=== PATIENT | female | born 1950 | race Caucasian/White ===

== ENCOUNTER 2024-11-05 06:28 | Day surgery (SDC) | payer MEDICARE ==
[~2024-11-05] VITALS: Ht 170.2 cm; Wt 76.2 kg
[2024-11-05] MEDS ORDERED: Bentyl20 MG (07:11)
[2024-11-05] MEDS ORDERED: BUDESONIDE-FO10.2 G2 (07:11)
[2024-11-05] MEDS ORDERED: GLIMEPIRIDE4 MG (07:11)
[2024-11-05] MEDS ORDERED: EPLERENONE25 M2 (07:11)
[2024-11-05] MEDS ORDERED: FOSAMAX70 MG (07:11)
[2024-11-05] MEDS ORDERED: Diflucan150 MG (07:12)
[2024-11-05] MEDS ORDERED: AMARYL (07:12)
[2024-11-05] MEDS ORDERED: HUMALOG KW100 UNIT/1 (07:13)
[2024-11-05] MEDS ORDERED: HYDRA25 (07:14)
[2024-11-05] MEDS ORDERED: BASAGLAR K100 UNIT/6 (07:14)
[2024-11-05] MEDS ORDERED: NYSTRIT (07:14)
[2024-11-05] MEDS ORDERED: TIOT18 (07:15)
[2024-11-05] MEDS ORDERED: SYMBICORT 160-4.6 GM (07:16)
[2024-11-05] MEDS ORDERED: ASPI81CH PO (07:17)
[2024-11-05] MEDS ORDERED: VITAMIN D3400 UNI1 (07:17)
[2024-11-05] MEDS ORDERED: ZYRTEC10 M2 (07:18)
[2024-11-05] MEDS ORDERED: CRANBERRY125 MG (07:18)
[2024-11-05] MEDS ORDERED: MAGNESIUM OXID500 MG (07:18)
[2024-11-05] MEDS ORDERED: TURMERIC500 M2 (07:18)
[2024-11-05] MEDS ORDERED: Flonase 0.05% N16 GM (07:18)
[2024-11-05] MEDS ORDERED: CULTURELLE ADV1 EACH (07:19)
[2024-11-05] MEDS ORDERED: RED YEAST RICE55 MG (07:19)
[2024-11-05] MEDS ORDERED: MELATONIN1 M1 (07:19)
[2024-11-05] MEDS ORDERED: NAC (07:20)
[2024-11-05] MEDS ORDERED: ZINC50 M3 (07:20)
[2024-11-05] MEDS ORDERED: propofoL 50 ML IV ONE (07:36)
[2024-11-05] MEDS ORDERED: Lactated Ringer's 1,000 ML IV ONE ×2 (07:37→07:57)
[2024-11-05 09:06] VITALS: BP 132/68
== END 2024-11-05 09:10 | disposition home or self-care (01) ==
LOC: ORSCSDS 06:28
PROVIDERS: Specialist
PROC: 0DB78ZX Excision of Stomach, Pylorus, Via Natural or Artificial Opening Endoscopic, Diagnostic (ICD-10-PCS; principal; 2024-11-05 08:00)
PROC: 0DBL8ZX Excision of Transverse Colon, Via Natural or Artificial Opening Endoscopic, Diagnostic (ICD-10-PCS; principal; 2024-11-05 08:00)
DX: Z12.11 Encounter for screening for malignant neoplasm of colon (principal); Z86.0101 Personal history of adenomatous and serrated colon polyps; Z13.810 Encounter for screening for upper gastrointestinal disorder; K74.60 Unspecified cirrhosis of liver; K63.5 Polyp of colon; K31.89 Other diseases of stomach and duodenum; K74.69 Other cirrhosis of liver; K64.8 Other hemorrhoids; K57.30 Diverticulosis of large intestine without perforation or abscess without bleeding; I10 Essential (primary) hypertension; E78.5 Hyperlipidemia, unspecified; E11.9 Type 2 diabetes mellitus without complications; Z79.4 Long term (current) use of insulin; Z79.899 Other long term (current) drug therapy; Z79.82 Long term (current) use of aspirin
CPT/HCPCS: 82947; 88305; 88342; J2704; J7120